=== PATIENT | female | born 1970 | race Caucasian/White ===

== ENCOUNTER 2016-09-14 19:35 | Emergency (ER) | payer OTHER ==
[~2016-09-14 19:35] MED LIST: ALBUTEROL0.09 MG/A2; ASPIRIN ADULT L81 M5 PO; LEVOTHYROXINE0.1 M2 PO; METOPROLOL SUCC25 M1 PO; OMEPRAZOLE D/R20 M1 PO; SYN1 PO
[2016-09-14 20:06] VITALS: BP 159/98
== END 2016-09-14 22:37 | disposition home or self-care (01) ==
LOC: ED 19:35
DX: J06.9 Acute upper respiratory infection, unspecified (principal); M25.521 Pain in right elbow; I10 Essential (primary) hypertension; E07.9 Disorder of thyroid, unspecified; J45.909 Unspecified asthma, uncomplicated

== ENCOUNTER 2017-11-22 22:16 | Emergency (ER) | payer OTHER ==
[~2017-11-22] VITALS: Ht 157.5 cm; Wt 78.3 kg
[2017-11-22 23:03] LABS: BASOPHIL % 0.6 % (0-2); PLATELET COUNT 316 x10^3mcL (130-400)
[2017-11-22 23:14] LABS: CALCIUM 8.7 mg/dL (8.5-10.1); CARBON DIOXIDE 27.7 mmol/L (21-32); CHLORIDE SERUM 102 mmol/L (98-107); CREATININE SERUM 0.7 mg/dL (0.6-1.0); GFR1 > 60 mL/min; GLUCOSE SERUM 157 mg/dL (74-106); POTASSIUM SERUM 3.6 mmol/L (3.5-5.1); SODIUM SERUM 138 mmol/L (136-145)
[2017-11-22 23:18] LABS: ALBUMIN 3.7 g/dL (3.4-5.0); ALKALINE PHOSPHATASE 101 U/L (46-116); ALT/SGPT 87 U/L (14-59); AMYLASE 48 U/L (25-115); AST/SGOT 46 U/L (15-37); BILIRUBIN TOTAL 0.25 mg/dL (0.20-1.00); LIPASE 150 IU/L (73-393); TOTAL PROTEIN, SERUM 7.5 g/dL (6.4-8.2)
[2017-11-23 00:48] VITALS: BP 101/71
== END 2017-11-23 00:48 | disposition home or self-care (01) ==
LOC: ED 22:16
PROVIDERS: Specialist
DX: N83.202 Unspecified ovarian cyst, left side (principal); I10 Essential (primary) hypertension; J45.909 Unspecified asthma, uncomplicated
CPT/HCPCS: 83880; J1885; J2405; J3010; J7030

== ENCOUNTER 2018-06-07 20:29 | Emergency (ER) | payer OTHER | END 2018-06-08 00:10 | disposition home or self-care (01) | LOC: ED 20:29 | DX: R51 Headache (principal); R20.2 Paresthesia of skin; R06.02 Shortness of breath; R42 Dizziness and giddiness; R11.0 Nausea; R07.89 Other chest pain; J45.909 Unspecified asthma, uncomplicated; I10 Essential (primary) hypertension; E03.9 Hypothyroidism, unspecified ==

== ENCOUNTER 2018-12-09 13:47 | Emergency (ER) | payer OTHER ==
[~2018-12-09] VITALS: Ht 157.5 cm; Wt 73.3 kg
[2018-12-09 13:56] VITALS: Ht 157.5 cm; Wt 73.3 kg
[2018-12-09 14:31] LABS: BASOPHIL % 0.5 % (0-2); PLATELET COUNT 309 x10^3mcL (130-400); RED CELL DISTRIBUTION WIDTH 12.9 % (11.5-14.5)
[2018-12-09 14:40] LABS: CALCIUM 8.7 mg/dL (8.5-10.1); CARBON DIOXIDE 29.5 mmol/L (21-32); CHLORIDE SERUM 101 mmol/L (98-107); GFR1 > 60 mL/min; GLUCOSE SERUM 201 mg/dL (74-106); POTASSIUM SERUM 3.7 mmol/L (3.5-5.1); SODIUM SERUM 140 mmol/L (136-145)
[2018-12-09 14:45] LABS: ALBUMIN 3.7 g/dL (3.4-5.0); ALKALINE PHOSPHATASE 63 U/L (46-116); ALT/SGPT 290 U/L (14-59); AMYLASE 37 U/L (25-115); AST/SGOT 202 U/L (15-37); BILIRUBIN TOTAL 0.7 mg/dL (0.20-1.00); LIPASE 77 IU/L (73-393); TOTAL PROTEIN, SERUM 7.2 g/dL (6.4-8.2)
[2018-12-09 16:10] LABS: microscopic required? YES; urine erythrocyte TRACE (NEGATIVE)
[2018-12-09 18:35] VITALS: BP 135/80
== END 2018-12-09 18:36 | disposition home or self-care (01) ==
LOC: ED 13:47
PROVIDERS: Emergency Medicine
DX: N39.0 Urinary tract infection, site not specified (principal); R11.10 Vomiting, unspecified; R19.7 Diarrhea, unspecified; R74.0 Nonspecific elevation of levels of transaminase and lactic acid dehydrogenase [LDH]; I10 Essential (primary) hypertension; E03.9 Hypothyroidism, unspecified; J45.909 Unspecified asthma, uncomplicated; Z90.49 Acquired absence of other specified parts of digestive tract; Z90.710 Acquired absence of both cervix and uterus
CPT/HCPCS: J0696; J1885; J2405; J7030; J7060